=== PATIENT | female | born 1965 | race Caucasian/White ===

== ENCOUNTER → 2016-12-31 | Outpatient (CLI) | payer BC ==
[2016-12-31 14:46] LABS: BASOPHILS # (AUTO) 0.1 X10^3/uL (0.0-0.1); BASOPHILS % (AUTO) 0.9 % (0.2-1.0); EOSINOPHILS # (AUTO) 0.1 x10^3/uL (0.0-0.2); EOSINOPHILS % (AUTO) 1.3 % (0.9-2.9); HEMATOCRIT 35.9 % (36.0-47.0); HEMOGLOBIN 12.3 g/dL (12.0-16.0); LYMPHOCYTES # (AUTO) 1.7 X10^3/uL (1.3-2.9); LYMPHOCYTES % (AUTO) 24.7 % (21.0-51.0); MEAN CORPUSCULAR HEMOGLOBIN 31.7 pg (27.0-34.0); MEAN CORPUSCULAR HGB CONC 34.3 g/dL (33.0-35.0); MEAN CORPUSCULAR VOLUME 92.3 fL (80.0-100.0); MEAN PLATELET VOLUME 10.2 fL (7.4-11.0); MONOCYTES # (AUTO) 0.4 x10^3/uL (0.3-0.8); MONOCYTES % (AUTO) 5.4 % (0.0-13.0); NEUTROPHILS # (AUTO) 4.7 x10^3/uL (2.2-4.8); NEUTROPHILS % (AUTO) 67.7 % (42.0-75.0); PLATELET COUNT 72 X10^3/uL (150.0-450.0); RED BLOOD COUNT 3.89 X10^6/uL (3.5-5.4); RED CELL DISTRIBUTION WIDTH 12.9 % (11.6-16.5)
[2016-12-31 15:12] LABS: PLATELET MORPHOLOGY COMMENT NORMAL (NORMAL)
== END ==
LOC: LAB 13:17
PROVIDERS: ATTEND Internal Medicine Gastroenterology
DX: R10.31 Right lower quadrant pain (principal); R10.32 Left lower quadrant pain
CPT/HCPCS: 36415; 85025

== ENCOUNTER 2017-01-13 10:07 | Day surgery (SDC) | payer BC ==
[2017-01-13] MEDS ORDERED: D5 LR 1000 ML 1,000 ML IV ONE (10:13)
[2017-01-13] MEDS ORDERED: DIPRIVAN VIAL 20 ML ONE ×2 (10:51→11:04)
[2017-01-13 11:26] VITALS: BP 121/81
== END 2017-01-13 11:25 | disposition home or self-care (01) ==
LOC: SURG1 10:07
PROVIDERS: ATTEND Internal Medicine Gastroenterology
PROC: 0DJD8ZZ Inspection of Lower Intestinal Tract, Via Natural or Artificial Opening Endoscopic (ICD-10-PCS; principal; 2017-01-13 15:45)
PROC: 0DBN8ZX Excision of Sigmoid Colon, Via Natural or Artificial Opening Endoscopic, Diagnostic (ICD-10-PCS; principal; 2017-01-13 15:45)
DX: Z12.11 Encounter for screening for malignant neoplasm of colon (principal); Z87.19 Personal history of other diseases of the digestive system; R10.84 Generalized abdominal pain; K63.5 Polyp of colon; K64.0 First degree hemorrhoids; D12.5 Benign neoplasm of sigmoid colon
CPT/HCPCS: A4217; J3490; J7120

== ENCOUNTER 2019-02-08 08:38 | Observation (INO) ==
[2019-02-08] MEDS ORDERED: SOLU-Medrol 40 MG VIAL IVP ONE (08:56)
[2019-02-08] MEDS ORDERED: DUONEB 0.5 MG/3 MG NEB ONE (08:56)
--- NOTE | 2019-02-08 08:56 | DR.SOBA ---
HPI Time Seen Time Seen by Provider: 02/08/19 08:50 Primary Care Physician Primary Care Physician: DR ZAVALA Complaints Chief Complaint Doctors Comments: A 53 y/o female here by EMS presenting with onset of wheezing in the past 1 hour. She has a known hx. Asthma and HTN. With this symptom today, she has self administered 2 doses of Albuterol rescue i nhalers with no improvement of symptoms. She denies chest pain. Her last ED visit was in /2017, she been hospitalized for Asthma exacerbation but never intubated she says. Chief Complaint:: PT STATES THAT SHE WAS AT WORK THIS MORNING WHEN AROUND 8AM SHE HAS A SUDDEN ONSET OF SHORTNESS OF BREATH. PT STATES THAT SHE HAS MULTIPLE ENVIRONMENTAL ALLERGIES. PRIOR TO EMS ARRIVAL PT STATES SHE HAD USED EPI PEN AND ALBUTEROL RESCUE INHALER. Reviewed Nurses Notes Reviewed: Yes Source History Provided: Patient Mode of Arrival Mode of Arrival: EMS Timing Onset of Chief Complaint: 02/08/19 Duration Onset: a.m. Duration: Hours Context Onset:: With Light Exertion PE Risk Factors:: None History of:: Asthma; denies COPD, CHF, DVT/PE, Anxiety and Intubation Currently on:: Inhaled Bronchodilators Prehospital Care:: O2 Modifying Factors Worsens:: Nothing Improves:: Nothing Associated Signs and Symptoms Associated Signs and Symptoms: Wheeze and Cough If Chest Pain Quality: denies Sharp, Stabbing, Squeezing, Pressure like, Heavy, Crushing, Burning, Aching and Pleuritic If Cough Cough: Nonproductive PMH PMH Past Medical History: Yes Past Medical History: Asthma and Hypertension Past Surgical History: Yes Surgical History: Hysterectomy Past Surgical History Comment: LEFT NEPHRECTOMY Family History History of Family Medical Conditions: Yes Family Medical History: Diabetes Mellitus, Cancer and Hypertension Social History Does patient currently use any type of tobacco product: No Have you used tobacco products in the last 12 months: No Type of Tobacco Use: None Does any household member use tobacco: No Alcohol Use: Occasionally Do you use any recreational Drugs:: No Lives With: Family Lives Where: Home infectious screening In the last 2 months have you had wt loss of >10#?: NO Have you had fever, night sweats or hemotysis?: No Have you traveled outside the country in the last 6 months?: No Isolation: Standard ROS Review of Systems Constitutional: No Symptoms Reported Eyes: No Symptoms Reported ENTM: No Symptoms Reported Respiratoy: Non-Productive Cough, Short of Breath and Wheezing Cardiovascular: No Symptoms Reported Gastrointestinal/Abdominal: No Symptoms Reported Genitourinary: No Symptoms Reported Neurological: No Symptoms Reported Musculoskeletal: No Symptoms Reported Integumentary: No Symptoms Reported Hematologic/Lymphatic: No Symptoms Reported Endocrine: No Symptoms Reported Psychiatric: No Symptoms Reported PE Vital Signs Vitals: Temperature 99.0 F Pulse Rate 97 Respiratory Rate 22 Blood Pressure [Right Arm] 163/77 Blood Pressure 132/74 O2 Sat by Pulse Oximetry 100 General Limitations: No Limitations General Appearance: Alert and In No Apparent Distress Head Head Exam: Normal Inspection, Atraumatic and Normocephalic Eyes Eye exam: Normal Appearance and EOMI ENT ENT Exam: Normal Oropharynx and Mucous Membranes Moist Neck Neck Exam: Normal Inspection, Full ROM and Trachea Midline Chest Chest Inspection: Normal Inspection and Symmetric Chest Wall Rise Respiratory Respiratory Exam: negative Normal Lung Sounds Bilat, Accessory Muscle Use, Chest Wall Tenderness, Prolonged Expiratory Phase, Respiratory Distress and Stridor Respiratory Exam: Bilateral: Wheezing (mild, residual now ) Cardiovascular Cardiovascular Exam: Regular Rate, Normal Rhythm, Normal Heart Sounds, +S1 and +S2 Abdominal Exam Abdominal Exam: Normal Inspection, Normal Bowel Sounds and Soft Extremities Extremities Exam: Normal Inspection, Full ROM and Tenderness Back Back Exam: Normal Inspection and Full ROM Neurologic Neurological Exam: Alert and Oriented X3 Psychiatric Psychiatric Exam: Normal Affect and Normal Mood Skin Skin Exam: Dry and Normal Color MDM Differential Diagnosis Differential Diagnosis: Asthma and Bronchitis COURSE Reevaluation 1st: Improved 2nd: Improved Education/Counseling Education/Counseling: Patient, Family, Education and Counseling Educated On: Treatment, Diagnosis, Prognosis and Needs for Follow Up ROR Labs Reviewed Result Diagrams: 02/08/19 09:09 02/08/19 09:09 Laboratory: WBC 7.5 X10^3/uL (3.6-10.0) 02/08/19 09:09 RBC 4.23 X10^6/uL (3.5-5.4) 02/08/19 09:09 Hgb 13.7 g/dL (12.0-16.0) 02/08/19 09:09 Hct 39.3 % (36.0-47.0) 02/08/19 09:09 MCV 92.9 fL (80.0-100.0) 02/08/19 09:09 MCH 32.4 pg (27.0-34.0) 02/08/19 09:09 MCHC 34.8 g/dL (33.0-35.0) 02/08/19 09:09 RDW 12.8 % (11.6-16.5) 02/08/19 09:09 Plt Count 260 X10^3/uL (150.0-450.0) 02/08/19 09:09 MPV 9.7 fL (7.4-11.0) 02/08/19 09:09 Neut % (Auto) 61.7 % (42.0-75.0) 02/08/19 09:09 Lymph % (Auto) 29.3 % (21.0-51.0) 02/08/19 09:09 Wilkin % (Auto) 8.8 % (0.0-13.0) 02/08/19 09:09 Eos % (Auto) 0.0 % (0.9-2.9) L 02/08/19 09:09 Baso % (Auto) 0.2 % (0.2-1.0) 02/08/19 09:09 Neut # (Auto) 4.6 x10^3/uL (2.2-4.8) 02/08/19 09:09 Lymph # (Auto) 2.2 X10^3/uL (1.3-2.9) 02/08/19 09:09 Wilkin # (Auto) 0.7 x10^3/uL (0.3-0.8) 02/08/19 09:09 Eos # (Auto) 0.0 x10^3/uL (0.0-0.2) 02/08/19 09:09 Baso # (Auto) 0.0 X10^3/uL (0.0-0.1) 02/08/19 09:09 Absolute Nucleated RBC 0.0 /100WBC 02/08/19 09:09 Sodium 138 mmol/L (136-145) 02/08/19 09:09 Corrected Sodium 139 mmol/L (136-145) 02/08/19 09:09 Potassium 4.0 mmol/L (3.5-5.1) 02/08/19 09:09 Chloride 101 mmol/L (98-107) 02/08/19 09:09 Carbon Dioxide 28.0 mmol/L (21-32) 02/08/19 09:09 BUN 28 mg/dL (7-18) H 02/08/19 09:09 Creatinine 0.99 mg/dL (0.55-1.02) 02/08/19 09:09 Est GFR (MDRD) Af Amer > 60 (>60) 02/08/19 09:09 Est GFR (MDRD) Non-Af > 60 (>60) 02/08/19 09:09 Glucose 140 mg/dL (65-99) H 02/08/19 09:09 Calcium 9.2 mg/dL (8.5-10.1) 02/08/19 09:09 Corrected Calcium TNP 02/08/19 09:09 Total Bilirubin 0.50 mg/dL (0.2-1.0) 02/08/19 09:09 AST 21 Units/L (15-37) 02/08/19 09:09 ALT 26 Units/L (12-78) 02/08/19 09:09 Alkaline Phosphatase 47 Units/L (46-116) 02/08/19 09:09 Total Protein 7.7 g/dL (6.4-8.2) 02/08/19 09:09 Albumin 4.2 g/dL (3.4-5.0) 02/08/19 09:09 Globulin 3.5 g/dL (2.5-4.5) 02/08/19 09:09 Albumin/Globulin Ratio 1.2 Ratio (1.1-2.1) 02/08/19 09:09 XRAY XRAY Interpreted by: Self XRAY Findings: no acute disease Opioid Opioid Risk Tool Personal Hx of Substance Abuse: Alcohol Age (Antony box if 16-45): Yes History of Preadolescent Sexual Abuse: No Total: 1 Total Score Risk Category: Low Risk Copyright: Kb QUINONES predicting aberrant behaviors Diagnosis Discharge Problem: Azotemia, HTN (hypertension), benign Asthma exacerbation Qualifiers: Asthma severity: moderate Asthma persistence: unspecified Qualified Code(s): J45.901 - Unspecified asthma with (acute) exacerbation Instructions Forms: Excuse From Work
[2019-02-08] MEDS ORDERED: SOLU-Medrol 40 MG VIAL ONE (08:59)
[2019-02-08] MEDS ORDERED: PROVENTIL NEB TX 0.083% 2.5MG/ 3ML ONE (08:59)
--- NOTE | 2019-02-08 09:22 | RAD ---
History: Shortness of breath and asthma Study: PA chest Comparison: September 02, 2011 Findings: The lungs are clear and the heart and mediastinum are unremarkable. The lungs appear normally inflated. There is no edema or effusion or congestion. Impression: No evidence for active cardiopulmonary disease Reported By:
[2019-02-08 09:24] LABS: BASOPHILS % (AUTO) 0.2 % (0.2-1.0); HEMATOCRIT 39.3 % (36.0-47.0); HEMOGLOBIN 13.7 g/dL (12.0-16.0); LYMPHOCYTES # (AUTO) 2.2 X10^3/uL (1.3-2.9); LYMPHOCYTES % (AUTO) 29.3 % (21.0-51.0); MEAN CORPUSCULAR HEMOGLOBIN 32.4 pg (27.0-34.0); MEAN CORPUSCULAR HGB CONC 34.8 g/dL (33.0-35.0); MEAN CORPUSCULAR VOLUME 92.9 fL (80.0-100.0); MEAN PLATELET VOLUME 9.7 fL (7.4-11.0); MONOCYTES # (AUTO) 0.7 x10^3/uL (0.3-0.8); MONOCYTES % (AUTO) 8.8 % (0.0-13.0); NEUTROPHILS # (AUTO) 4.6 x10^3/uL (2.2-4.8); NEUTROPHILS % (AUTO) 61.7 % (42.0-75.0); PLATELET COUNT 260 X10^3/uL (150.0-450.0); RED BLOOD COUNT 4.23 X10^6/uL (3.5-5.4); RED CELL DISTRIBUTION WIDTH 12.8 % (11.6-16.5); WHITE BLOOD COUNT 7.5 X10^3/uL (3.6-10.0)
[2019-02-08 09:30] LABS: ALANINE AMINOTRANSFERASE 26 Units/L (12-78); ALBUMIN 4.2 g/dL (3.4-5.0); ALKALINE PHOSPHATASE 47 Units/L (46-116); ASPARTATE AMINO TRANSFERASE 21 Units/L (15-37); BLOOD UREA NITROGEN 28 mg/dL (7-18); CALCIUM 9.2 mg/dL (8.5-10.1); CHLORIDE 101 mmol/L (98-107); COR NA(FOR HYPERGLY) 139 mmol/L (136-145); CREATININE 0.99 mg/dL (0.55-1.02); SODIUM 138 mmol/L (136-145); TOTAL PROTEIN 7.7 g/dL (6.4-8.2); eGFR NON BLACK RACES > 60 (>60)
[2019-02-08] MEDS ORDERED: NS 1000 ML 1,000 ML IV ONE (10:00)
[2019-02-08] MEDS ORDERED: NS 1000 ML 1,000 ML ONE (10:01)
[2019-02-08] MEDS: NS 1000 ML 1,000 ML IV SCH ×2 (11:04→18:11)
[2019-02-08 11:22] VITALS: BMI 27.0
[2019-02-08] MEDS: DUONEB 0.5 MG/3 MG NEB SCH (11:30)
[2019-02-08] MEDS: SOLU-Medrol 40 MG VIAL IVP SCH ×2 (15:12→21:39)
[2019-02-08] MEDS ORDERED: TYLENOL 325 MG TAB PO PRN (19:08)
[2019-02-08] MEDS ORDERED: TYLENOL 325 MG TAB PO ONE (19:09)
[2019-02-08] MEDS ORDERED: SINGULAIR TAB 10 MG PO SCH (21:00)
[2019-02-08] MEDS ORDERED: ULTRAM PO PRN (21:17)
[2019-02-08] MEDS ORDERED: NORCO 5/325 MG TAB ONE (21:22)
[2019-02-08] MEDS: NORCO 5/325 MG TAB PO PRN (21:38)
[2019-02-09] MEDS ORDERED: FIORICET TAB PO ONE (00:19)
[2019-02-09] MEDS ORDERED: FIORICET TAB ONE (00:21)
[2019-02-09] MEDS: DUONEB 0.5 MG/3 MG NEB SCH ×2 (01:00→05:15)
[2019-02-09] MEDS: NS 1000 ML 1,000 ML IV SCH ×2 (03:54→10:38)
[2019-02-09] MEDS: SOLU-Medrol 40 MG VIAL IVP SCH (05:14)
[2019-02-09 07:01] LABS: BASOPHILS # (AUTO) 0.1 X10^3/uL (0.0-0.1); BASOPHILS % (AUTO) 0.4 % (0.2-1.0); HEMATOCRIT 39.1 % (36.0-47.0); LYMPHOCYTES # (AUTO) 1.2 X10^3/uL (1.3-2.9); LYMPHOCYTES % (AUTO) 5.4 % (21.0-51.0); MEAN CORPUSCULAR HGB CONC 33.3 g/dL (33.0-35.0); MEAN CORPUSCULAR VOLUME 96.3 fL (80.0-100.0); MEAN PLATELET VOLUME 11.5 fL (7.4-11.0); MONOCYTES # (AUTO) 0.3 x10^3/uL (0.3-0.8); MONOCYTES % (AUTO) 1.6 % (0.0-13.0); NEUTROPHILS # (AUTO) 19.9 x10^3/uL (2.2-4.8); NEUTROPHILS % (AUTO) 92.6 % (42.0-75.0); PLATELET COUNT 99 X10^3/uL (150.0-450.0); RED BLOOD COUNT 4.06 X10^6/uL (3.5-5.4); WHITE BLOOD COUNT 21.5 X10^3/uL (3.6-10.0)
[2019-02-09 07:09] LABS: ALANINE AMINOTRANSFERASE 23 Units/L (12-78); ALBUMIN 3.8 g/dL (3.4-5.0); ALKALINE PHOSPHATASE 46 Units/L (46-116); ASPARTATE AMINO TRANSFERASE 13 Units/L (15-37); BLOOD UREA NITROGEN 19 mg/dL (7-18); CALCIUM 8.1 mg/dL (8.5-10.1); CARBON DIOXIDE 20.2 mmol/L (21-32); CHLORIDE 106 mmol/L (98-107); COR NA(FOR HYPERGLY) 144 mmol/L (136-145); CREATININE 1.06 mg/dL (0.55-1.02); SODIUM 141 mmol/L (136-145); TOTAL PROTEIN 7.3 g/dL (6.4-8.2); eGFR NON BLACK RACES 57 (>60)
--- NOTE | 2019-02-09 07:15 | RAD ---
HISTORY: Shortness of breath Study: Chest AP portable Comparison: 02/08/2019 Findings: The heart is within normal limits in size. The pati are normal. The lung ibarra are clear. No pleural effusions are identified. The bony thorax is unremarkable. IMPRESSION: No significant abnormality identified Reported By:
[2019-02-09 07:23] LABS: PLATELET MORPHOLOGY COMMENT NORMAL (NORMAL)
[2019-02-09 08:39] VITALS: BP 148/72
[2019-02-09] MEDS ORDERED: ZESTRIL TAB 20 MG ONE (08:49)
[2019-02-09] MEDS: NORCO 5/325 MG TAB PO PRN (08:56)
[2019-02-09] MEDS ORDERED: ROCEPHIN VIAL 1 GRAM IVP SCH (09:00)
[2019-02-09] MEDS ORDERED: ZESTRIL TAB 20 MG PO SCH (09:00)
[2019-02-09] MEDS ORDERED: MOBIC TAB 15 MG PO SCH (09:00)
[2019-02-09] MEDS ORDERED: LISDEXAMFETAMINE 60 MG PO SCH (09:00)
[2019-02-10] MEDS ORDERED: ZESTORETIC 10/ 12.5MG PO SCH (09:00)
--- NOTE | 2019-02-27 21:42 | DR.CARTERS ---
Short Stay Summary - Admission Date Date of Admission: 02/08/19 - Discharge Date Discharge Date: 02/09/18 - Admission Diagnoses (1) Asthma exacerbation Status: Acute (2) Azotemia Status: Acute - Hospital Course Hospital Course: IS A YEAR OLD PATIENT OF OURS WHO PRESENTED TO THE ER WITH COMPLAINTS OF SUDDEN -ONSET SHORTNESS OF BREATH. SHE REPORTED THAT SYMPTOMS STARTED ONE HOUR PRIOR TO ARRIVAL. ASSOCIATED SYMPTOMS INCLUDED WHEEZING. SHE REPORTED A HISTORY OF ASTHMA. PRIOR TO ARRIVAL, SHE SELF ADMINISTERED 2 PUFFS OF AN ALBUTEROL RE SCUE INHALER AND EPINEPHRINE. ON ARRIVAL, VITALS WERE: 99.0-105-22-99%-143/83. LABS WERE OBTAINED. ABNORMAL LAB VALUES INCLUDED THE FOLLOWING: BUN 28, GLUCOSE 140. A CHEST XRAY WAS OBTAINED AND REVEALED: NO EVIDENCE FOR ACTIVE CARDIOPULMONARY DISEASE. SHE WAS GIVEN A DUONEB X 1, SOLU-MEDROL 80MG IV X 1, AND A NORMAL SALINE BOLUS. SHE WAS ADMITTED FOR [facility] EVALUATION AND TREATMENT OF ASTHMA ATTACH AND AZOTEMIA. SHE WAS STARTED ON NORMAL SALINE AT 125ML/HR, DUONEBS Q6H, SOLU-MEDROL 40MG IV Q8H, SINGULAIR 10MG PO HS. WE PLANNED TO FOLLOW UP WITH AM LABS AND CONTINUE TO MONITOR. ON THE MORNING FOLLOWING ADMISSION, PATIENT IS ALERT AND ORIENTED, SITTING UP IN BED. SHE DENIES SHORTNESS OF BREATH. SHE REPORTS A MILD HEADACHE THIS MORNING. ON EXAMINATION, HEART IS REGULAR IN RATE AND RHYTHM. BILATERAL LUNGS NOTED TO BE CLEAR TO AUSCULTATION. ABDOMEN IS ROUND, SOFT, AND NON-TENDER WITH NORMAL BOWEL SOUNDS NOTED IN ALL QUADRANTS. HER 99.0-105-22-99%-143/82. LABS WERE OBTAINED. ABNORMAL LAB VALUES INCLUDE THE FOLLOWING: WBC 21.5, PLT COUNT 99, CARBON DIOXIDE 20.2, BUN 19, CARBON DIOXIDE 1.06, GLUCOSE 209, CALCIUM 8.1, AST 13. A CHEST XRAY WAS OBTAINED AND REVEALED: NO SIGNIFICANT ABNORMALITY IDENTIFIED. WE PLANNED FOR DISCHARGE. INSTRUCTIONS FOR MEDICATIONS AND FOLLOW-UP WERE DISCUSSED WITH PATIENT. SHE VERBALIZED UNDERSTANDING. SHE WAS DISCHARGED HOME WITH NEW PRESCRIPTIONS FOR FIORICET 1 CAPSULE PO BID PRN AND AN EPINEPHRINE PEN. SHE WAS INSTRUCTED TO FOLLOW UP IN THE OFFICE ON 02/16 AT 1:30. PATIENT WAS DISCHARGED HOME WITH FAMILY IN STABLE CONDITION. - Discharge Medications Discharge Medications: Home Medication List lisdexamfetamine 60 mg PO DAILY 02/08/19 [History] lisinopril-hydrochlorothiazide 1 tab PO DAILY 02/08/19 [History] meloxicam 15 mg PO DAILY 02/08/19 [History] xtzehpalbd-mcnuopfqiibho-xwon [Fioricet] 1 cap PO BID #60 cap 02/09/19 [Rx] epinephrine 0.3 mg IM PRN PRN #1 unit 02/09/19 [Rx] Prescriptions: klwjsdysey-xsdizbdxagpii-xwow [Fioricet] Javi Kruse epinephrine Javi Kruse - Discharge Plan Disposition: HOME, SELF-CARE Condition: Stable Prescriptions: maxzsbmeaq-ipbhklidjeyot-ssnw [Fioricet] 1 cap PO BID #60 cap epinephrine 0.3 mg IM PRN PRN #1 unit PRN Reason: - Follow up/Referrals Follow up/Referrals: Javi Kruse [Primary Care Provider] - 02/16/19 10:30 am - Instructions Instructions: Allergies, Adult, Cpeh-wl-Eema, Epinephrine injection (Auto- injector), Hypertension, Farw-oo-Ryfb, Asthma Attack Prevention, Adult Additional Instructions: diet as tolerated. activity as tolerated. Forms: Excuse From Work, Patient Portal
== END 2019-02-09 10:56 | disposition home or self-care (01) ==
LOC: ICU 08:38 → ER 08:38 → ICU 10:47
PROVIDERS: ADMIT Internal Medicine; ATTEND Internal Medicine
DX: J45.901 Unspecified asthma with (acute) exacerbation; R06.02 Shortness of breath; G43.909 Migraine, unspecified, not intractable, without status migrainosus; I10 Essential (primary) hypertension; Z79.899 Other long term (current) drug therapy; R79.89 Other specified abnormal findings of blood chemistry
CPT/HCPCS: 36415; 71010; 71045; 80053; 85025; 94640; 96365; 96367; 96374; 99284; G0378; J2920; J3490; J7030; J7613; J7620